=== PATIENT | female | born 1965 | race Caucasian/White ===

== ENCOUNTER 2019-12-03 08:47 | Outpatient (CLI) | payer OTHER, SELFPAY ==
--- NOTE | 2019-12-03 08:56 | MM_ITS ---
WS: [id number] BILATERAL SCREENING DIGITAL MAMMOGRAM WITH CAD HISTORY: SCREENING COMPARISON: 10/22/2018, 10/21/2017, Bilateral CC and MLO views submitted. Computer aided detection analyzed. Breast composition: There are scattered areas of fibroglandular density. No suspicious masses, microc alcifications or architectural distortion. Asymmetries and increased density posterior to the nipples . Similar pattern as compared to prior studies. Benign calcifications in each breast. MM/[id number] IMPRESSION: BI-RADS: 2-Benign FOLLOW UP: 1 Year Follow-up
== END 2019-12-03 08:48 | disposition home or self-care (01) ==
LOC: RADSHAW 08:53
PROVIDERS: PCP Family Medicine; Visit Provider Family Medicine
DX: Z12.31 Encounter for screening mammogram for malignant neoplasm of breast (principal)
CPT/HCPCS: 77067

== ENCOUNTER 2020-10-19 12:57 | Outpatient (CLI) | payer OTHER, SELFPAY ==
--- NOTE | 2020-10-19 15:22 | ONC FU_ITS ---
Dr. Martell follow up note Patient: Arely Lindsey Unit #: [id number]: 1965 Dicatated By: Marietta Martell M.D.Date of Visit:Oct 19, 2020 Onc Med Follow-up/Prog Note History of Present Illness: Ms. Arely Lindsey, is a 55-year-old female who underwent screening colonoscopy on December 04, 2017, which showed 30 mm polyp in the ascending colon and 5 mm polyp in the ascending colon biopsy confirmed adenomatous polyp with low-grade dysplasia in the ascending colon and cecum area, on December 24, 2017 she underwent laparoscopic right hemicolectomy, terminal ileum, cecum and ascending colon, were removed and examined and shows invasive well-differentiated colonic adenocarcinoma arising in the very large adenomatous polyp of the cecum. Tumor shows invasion into submucosa, 7.5 cm in size, lymphovascular invasion was seen. All margins negative including eccentric margin. 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 Neuroendocrine neoplasm located in the submucosa without muscularis propria invasion. Both small intestine and chronic lines of resection free of margin. 0 out of 20 lymph nodes shows metastatic disease., T1, N0 stage I colon cancer, As per patient no adjuvant treatment was offered rather observation, as per patient she underwent follow-up colonoscopy on December 10, [address] Dumont and it was unremarkable and next one is due in 2021. Patient has been following with Dr. Bianchi, medical oncologist in [place], now because of convenience she has transferred her care to [place]. Denies any specific complaints, no melena or hematochezia, no hemoptysis hematemesis, no abdominal pain, no jaundice, no weight loss, no jaundice, no facial flushing, no bronchial wheezing, no diarrhea. Medications: Acidophilus Super Probiotic Capsule Oral daily, Adult Aspirin EC Low Strength 1 Tablet (of 81 mg) Tablet, enteric coated Oral daily, D-1000 Extra Strength 1 Tablet (of 25 mcg ) Oral daily, hydroCHLOROthiazide 1 Tablet (of 12.5 mg) Oral daily, Levocetirizine Dihydrochloride 1 Tablet (of 5 mg) Oral daily, Levothyroxine Sodium 1 Tablet (of 25 mcg) Oral daily, Lutein 1 Tablet (of 20 mg) Oral daily, Mini Mcmechen-3 Burp-Less 1 Tablet (of 540 mg) Capsule Oral daily, Polyethylene Glycol Powder daily, Simvastatin 1 Tablet (of 20 mg) Oral daily, traMADol HCl 1 Tablet (of 50 mg) Oral four times a day Allergies: Azithromycin, Ciprofloxacin HCl, Codeine Sulfate, Cortisone Acetate, Erythromycin, Mobic, oxyCODONE HCl, Singulair, and Sulfa Antibiotics. Review of Systems: Review of Systems is not available for this patient. Vital Signs: Performed on Oct 19, 2020 14:58 Height - 62 in Weight - 231.4 lbs (HIGH) BSA - 2.03 sq.m BMI - 42.32 (HIGH) Temperature - 98.2 F (LOW) Pulse - 101 /min (HIGH) Respiration - 18 /min BP - 135/84 mm(hg) O2 Sat - 97 % Pain - 0 Fatigue - 0 Performance Status: 0 - Fully active, able to carry on all predisease activities without restrictions. (ECOG) Physical Examination: ENMT - No mouth sores, no thrush, no jaundice, Respiratory - Lungs are clear to auscultation, Cardiovascular - Regular rate and rhythm of heart, Abdomen - Soft, bowel sounds present, Extremities - No visible edema. Lab/Imaging: Most recent lab results are not available for this patient. Impression: Invasive well-differentiated colonic adenocarcinoma arising very large adenomatous polyp of the cecum, tumor shows invasive into submucosa, 7.5 cm size, lymphovascular invasion seen but clear surgical margins, 0 out of 20 lymph node positive unless her disease, per laparoscopic right hemicolectomy done on December 24, 2017, final pathology confirmed T1, N0, M0, stage I colon cancer There was incidental finding of 0.4 cm well-differentiated neuroendocrine neoplasm, carcinoid tumor of the appendiceal tip. Neuroendocrine neoplasm located in the submucosa without muscularis propria invasion. With clear surgical margins. No loss of expression of MMR proteins. Follow-up colonoscopy done on November shows no inflammatory changes, diverticulosis was moderate seen in sigmoid colon, ileocolonic anastomosis was healthy-appearing, widely patent. 4 mm polyp from descending colon was removed. Status post right hip operation in May 2018. Hypothyroidism, history of lower extremity DVT Plan: Discussed with patient regarding her disease status and the question concern regarding further follow-up, patient said it has been 6 months she has seen her medical oncologist in [place], so next lab work-up is pending so we will obtain her follow-up lab work-up which include CBC CMP and CEA today and review, if there is any abnormality we will call her early otherwise then she will return to clinic in 6 months with follow-up labs CBC CMP and CEA, patient was advised to avoid or minimize red meat intake and and consume vegetable on regular basis. Patient had follow-up mammogram done last year and next one is due in November 2020. And last colonoscopy was done in 2018 and next one is due in 2021. Signed By: Marietta Martell M.D. <<Signature on File>>
[2020-10-19 15:25] LABS: Basophils % 0.9 %; Eosinophils # 0.1 10^3/uL (0.0-0.8); Eosinophils % 1.9 %; Hematocrit 40.5 % (37.0-47.0); Hemoglobin 13.7 g/dL (11.5-15.3); Lymphocytes # 1.3 10^3/uL (0.8-4.8); Lymphocytes % 27.9 %; Mean Corpuscular HGB Conc 33.8 g/dL (30.0-36.0); Mean Corpuscular Hemoglobin 29.7 pg (28.0-34.0); Mean Corpuscular Volume 87.7 fl (81-99); Mean Platelet Volume 9.7 fL (7.4-10.4); Monocytes # 0.4 10^3/uL (0.2-0.9); Neutrophils # 2.79 10^3/uL (1.8-7.7); Neutrophils % 59.9 %; Nucleated Red Blood Cells % 0 %; Platelet Count 192 10^3/cmm (130-400); Red Blood Count 4.62 10^6/uL (4.1-5.3); Red Cell Distribution Width 14.1 % (12.1-15.1); White Blood Count 4.7 10^3/uL (4.0-10.0)
[2020-10-19 16:12] LABS: Alanine Aminotransferase 33 U/L (0-33); Albumin Level 4.4 g/dL (3.5-5.2); Alkaline Phosphatase 88 IU/L (35-105); Anion Gap 16.6 (5-19); Aspartate Amino Transferase 29 U/L (0-32); Blood Urea Nitrogen 9 mg/dL (6-20); Calcium 9.6 mg/dL (8.5-10.5); Carbon Dioxide 26 mmol/L (22-29); Chloride 100 mmol/L (98-107); Globulin 2.8 g/dL (1.3-4.6); Glomerular Filtration Rate 86.2 mL/min (90-130); Glucose 78 mg/dL (65-115); Osmolality Calculated 286 mOsm/kg (285-295); Potassium 3.6 mmol/L (3.5-5.1); Sodium 139 mmol/L (136-145); Total Protein 7.2 g/dL (6.6-8.7)
[2020-10-19 18:02] LABS: Carcinoembryonic Antigen 2.1 ng/mL (0.0-4.7)
== END 2020-10-19 12:58 | disposition home or self-care (01) ==
LOC: ONCMED 13:05
PROVIDERS: PCP Family Medicine; Visit Provider Internal Medicine Hematology & Oncology
DX: C18.0 Malignant neoplasm of cecum (principal); E03.9 Hypothyroidism, unspecified; Z86.718 Personal history of other venous thrombosis and embolism; Z79.82 Long term (current) use of aspirin; Z79.899 Other long term (current) drug therapy; Z79.890 Hormone replacement therapy
CPT/HCPCS: 36415; 80053; 82378; 85025; 99205

== ENCOUNTER 2021-01-25 13:02 | Outpatient (CLI) | payer OTHER, SELFPAY ==
--- NOTE | 2021-01-25 13:09 | MM_ITS ---
WS: [id number] BILATERAL DIGITAL SCREENING MAMMOGRAPHY WITH CAD CLINICAL INFORMATION: SCREENING HISTORY: Screening mammogram. No current complaints. COMPARISON: December 03, 2019 TECHNIQUE: Bilateral CC and MLO views. FINDINGS: Scattered fibroglandular densities bilaterally. Stable punctate calcifications. No suspicious focal m ass, asymmetry, calcifications, or architectural distortion. No evidence of malignancy. MM/[id number] IMPRESSION: BI-RADS: 2-Benign FOLLOW UP: 1 Year Follow-up Recommend return to annual screening mammography.
== END 2021-01-25 13:03 | disposition home or self-care (01) ==
LOC: RADSHAW 13:04
PROVIDERS: PCP Family Medicine; Visit Provider Family Medicine
DX: Z12.31 Encounter for screening mammogram for malignant neoplasm of breast (principal)
CPT/HCPCS: 77067

== ENCOUNTER 2022-01-31 12:23 | Outpatient (CLI) | payer OTHER, SELFPAY ==
--- NOTE | 2022-01-31 13:03 | MM_ITS ---
WS: [id number] VIEWS: MLO and CC views both breasts. 3D digital tomosynthesis is also included in this exam. Comparison made with prior exam of 09/09/2014, 10/11/2016, 10/22/2018, 12/03/2019. 01/25/2021.. Findings: There was no sign of mass, architectural distortion or suspicious calcification in either breast. Sta ble appearing nodular densities in both breasts. Scattered fibroglandular densities MM/[place] [id number] Impression: BI-RADS: 2-Benign FOLLOW-UP: 1 Year Follow-up This mammogram was also analyzed by the Computer Aided Detection System R2 Imag e Microfilm Clerk.
== END 2022-01-31 12:24 | disposition home or self-care (01) ==
LOC: RAD 12:23
PROVIDERS: PCP Family Medicine; Visit Provider Family Medicine
DX: Z12.31 Encounter for screening mammogram for malignant neoplasm of breast (principal)
CPT/HCPCS: 77063; 77067

== ENCOUNTER 2022-10-28 13:32 | Emergency (ER) | payer OTHER, SELFPAY ==
--- NOTE | 2022-10-28 13:35 | XRR_ITS ---
PROCEDURE INFORMATION: Exam: XR Left Foot Exam date and time: 10/28/2022 2:33 PM Age: 57 years old Clinical indication: Injury or trauma; Other: Object fell on L foot; Swelling (edema); Left TECHNIQUE: Imaging protocol: Radiologic exam of the left foot. Views: 3 or more views. COMPARISON: No relevant prior studies available. FINDINGS: Bones/joints: Mild hallux valgus deformity. No acute fracture identified. Mild degenerative spurring about the dorsal midfoot. Mild plantar calcaneal spurring. Soft tissues: Prominent soft tissue swelling about the forefoot. XR/XR foot LT min 3V* [id number] IMPRESSION: Prominent nonspecific soft tissue swelling about the forefoot. No underlying osseous fracture identified.
[2022-10-28 14:00] VITALS: BP 137/82; PULSE 88; TEMP 36.8; O2SAT 100; BMI 41.1
--- NOTE | 2022-10-28 14:03 | W.ED.LOWEXIN ---
HPI - Extremity Injury (Lower) General: Chief Complaint: Extremity Injury, Lower Stated Complaint: Lt foot inj Time Seen by Provider: 10/28/22 13:43 Source: patient Mode of arrival: ambulatory Limitations: no limitations History of Present Illness: 57-year-old female states that she dropped a table onto her left foot roughly an hour and a half ago she has pain over the midfoot she rates the pain a 1 out of 10 while she is resting pain is worse with movement she been able to ambulate but states it is painful denies any other injuries Review of Systems Const: Denies: fever(s) or chills Eyes: Denies: eye discomfort ENMT: Denies: throat pain or dental pain Card: Denies: chest pain Resp: Denies: dyspnea GI: Denies: abdominal pain, nausea, vomiting or diarrhea Musc: Reports: extremity pain; Denies: neck pain or back pain Neuro: Denies: headache(s) PFSH ED PFSH: Medical History Allergy to antibiotic Hordeolum externum left upper eyelid Hyperlipemia Hypothyroid Lower respiratory infection Social History Smoking and tobacco status: never smoked Second hand smoke exposure: No Smoking risk assessment/counseling performed?: No Reason smoking risk assessment not done: not indicated Alcohol intake: never Desire information about alcohol rehabilitation?: No Counseling given: No Substance/Drug Use: never Desire information about substance/drug rehabilitation?: No Counseling given: No Physical Exam Const: COMMON NORMALS: no acute distress and patient oriented x3 HENMT: COMMON NORMALS: normocephalic and atraumatic HEAD & SCALP: normocephalic and atraumatic Eye: COMMON NORMALS: conjunctivae normal CONJUNCTIVA: Yes conjunctivae normal Neck/C-Spine: COMMON NORMALS: supple Chest: COMMONS NORMALS: normal inspection of the chest Resp: COMMON NORMALS: normal respiratory effort Cardio: COMMON NORMALS: regular rate and regular rhythm RATE: regular rate RHYTHM: regular rhythm GI: COMMON NORMALS: Normal to inspection, nondistended, normoactive bowel sounds present Extremity: NARRATIVE EXTREMITY EXAM: Contusion noted to the left foot along with tenderness Neuro: COMMON NORMALS: patient oriented x3 Psych: COMMON NORMALS: mental status grossly normal Skin: COMMON NORMALS: no rashes or lesions noted GENERAL SKIN EXAM: no rashes or lesions noted Course Vital Signs: Vital signs: Vital Signs Temperature 98.3 F 10/28/22 14:00 Pulse Rate 88 10/28/22 14:00 Blood Pressure 137/82 10/28/22 14:00 Pulse Oximetry 100 10/28/22 14:00 Oxygen Delivery Me thod Room Air 10/28/22 14:00 MDM - Extremity Injury (Lower) Medical Decision Making Patient presents with contusion to her foot x-ray shows no fracture she is stable for discharge she is to Nabil wrap we will prescribe her Naprosyn she is to follow-up with PCP and return if worsening. Lab Data Radiology Impressions Foot X-Ray 10/28/22 13:35 IMPRESSION: Prominent nonspecific soft tissue swelling about the forefoot. No underlying osseous fracture identified. All radiology interpretation(s) finalized by discharge Discharge Plan Discharge Patient Disposition: Home Clinical Impression: Contusion of foot Qualifiers: Encounter type: initial encounter Laterality: left Qualified Code(s): S90.32XA - Contusion of left foot, initial encounter Condition: Stable Prescriptions: New Naprosyn 500 mg tablet 500 mg PO BID PRN (Reason: pain) Qty: 20 0RF No Action tramadol 50 mg tablet 50 mg PO ONCE levothyroxine 25 mcg tablet 25 mcg PO DAILY cephalexin 500 mg capsule 500 mg PO TID neomycin-polymyxin B-dexameth [Maxitrol] 3.5mg/mL-10,000 unit/mL-0.1 % drops,suspension See Rx Instructions ophthalmic (eye) Q8H 7 Days Qty: 5 0RF Rx Instructions: ophthalmic (eye) every 8 hours; 3 drops to the affected ear for 7 days. simvastatin 10 mg tablet 10 mg PO .at bedtime Qty: 30 2RF hydrochlorothiazide 12.5 mg tablet 12.5 mg PO DAILY Qty: 30 0RF Discharge Orders: Discharge ED (Routine); Ordered 10/28/22 Ordered By: Veronica Stanley Referrals: Rafael Jolly [Primary Care Provider] - 1-3 days Discharge Diet: Advance as tolerated Discharge Activity: Resume usual activity Patient Instructions: Foot Contusion (ED) Coding Level of Care Code ED Physical Therapist Clinic Director for Hetal Chang
== END 2022-10-28 15:02 | disposition home or self-care (01) ==
PROVIDERS: Emergency Provider Emergency Medicine; PCP Family Medicine
DX: S90.32XA Contusion of left foot, initial encounter (principal); E78.5 Hyperlipidemia, unspecified; W20.8XXA Other cause of strike by thrown, projected or falling object, initial encounter
CPT/HCPCS: 73630; 99283

== ENCOUNTER 2022-11-05 11:34 | Outpatient (CLI) | payer OTHER, SELFPAY ==
--- NOTE | 2022-11-05 11:51 | XRR_ITS ---
PROCEDURE INFORMATION: Exam: XR Left Foot Exam date and time: 11/05/2022 12:00 PM Age: 57 years old Clinical indication: Injury or trauma; Other: Dropped table on foot; Blunt trauma; Left; Injury details: Lt foot pain, PT droppd table on it 1 week ago; Patient HX: HX of colon cancer; Additional info: Injury of left foot TECHNIQUE: Imaging protocol: Radiologic exam of the left foot. Views: 3 or more views. COMPARISON: CR (LOW EXM, ) 10/28/2022 2:33 PM FINDINGS: Bones/joints: Alignment is normal. No acute fracture. There is a plantar calcaneal enthesophyte of uncertain significance. There is a prominent (5 x 4 mm) smoothly corticated dorsal osseous excrescence from the navicular visible on the lateral view. Possible osteophyte or osteochondroma. Soft tissues: Marked dorsal soft tissue edema in the distal midfoot. XR/XR foot LT min 3V* [id number] IMPRESSION: 1. No acute fracture. 2. Marked dorsal soft tissue edema in the distal midfoot and forefoot similar to 10/28/2022. 3. Incidental findings above.
--- NOTE | 2022-11-05 11:52 | USCV_ITS ---
Arely Lindsey Age: 57 Gender: F : 1965 Exam Date: 11/05/2022 12:24 Ordering Phys: Aysha Gregory Technologist: [place] [facility] [place]: lt leg swelling PROCEDURES: Venous duplex imaging was performed in only the left lower extremity. The following venous structures were evaluated: common femoral vein, profunda vein, proximal portion of the greater saphenous vein, superficial femoral vein, and the popliteal vein. In addition, the posterior tibial and peroneal trunk were evaluated. FINDINGS: Normal 2-D Doppler and augmentation and compressibility throughout the lower extremity venous structures. Additional imaging through the proximal calf veins also reveals no thrombus. Limited evaluation of the greater saphenous vein is patent with no thrombus. CONCLUSIONS No DVT left lower extremity. Dr. Lesley Low DO (Electronically Signed) Final Date: 05 November 2022 15:13 S
== END 2022-11-05 11:35 | disposition home or self-care (01) ==
PROVIDERS: PCP Family Medicine; Visit Provider Nurse Practitioner Family
DX: S99.922A Unspecified injury of left foot, initial encounter (principal); M79.89 Other specified soft tissue disorders; M79.672 Pain in left foot; W20.8XXA Other cause of strike by thrown, projected or falling object, initial encounter; Y92.019 Unspecified place in single-family (private) house as the place of occurrence of the external cause; Z85.038 Personal history of other malignant neoplasm of large intestine
CPT/HCPCS: 73630; 93971

== ENCOUNTER 2023-02-13 15:23 | Outpatient (CLI) | payer OTHER, SELFPAY ==
--- NOTE | 2023-02-13 15:30 | MM_ITS ---
WS: [id number] BILATERAL 3D TOMOSYNTHESIS DIGITAL SCREENING MAMMOGRAPHY WITH CAD CLINICAL INFORMATION: SCREENING HISTORY: Screening mammogram. No current complaints. COMPARISON: 2021 TECHNIQUE: Bilateral CC and MLO views. FINDINGS: Scattered fibroglandular densities bilaterally. No suspicious focal mass, asymmetry, calcifications, or architectural distortion. No evidence of malignancy. A few incidental punctate calcifications. IMPRESSION: MM/[place] [id number] BI-RADS: 2-Benign FOLLOW UP: 1 Year Follow-up Recommend return to annual screening mammography.
== END 2023-02-13 15:24 | disposition home or self-care (01) ==
LOC: MOBLMAM 15:27
PROVIDERS: PCP Family Medicine; Visit Provider Family Medicine
DX: Z12.31 Encounter for screening mammogram for malignant neoplasm of breast (principal)
CPT/HCPCS: 77063; 77067

== ENCOUNTER → 2024-01-21 16:11 | Outpatient (BNVA) | payer OTHER, SELFPAY | PROVIDERS: PCP Family Medicine; Visit Provider Nurse Practitioner Family | DX: M10.9 Gout, unspecified (principal) | CPT/HCPCS: 84550 ==

== ENCOUNTER 2024-03-18 11:38 | Outpatient (CLI) | payer OTHER, SELFPAY ==
--- NOTE | 2024-03-18 11:40 | MM_ITS ---
WS: [id number] Bilateral screening 3D tomosynthesis digital mammogram, 03/18/2024 11:45 AM Clinical Data: SCREENING Comparison: 02/13/2023, 01/31/2022, 01/25/2021, 12/03/2019, 10/22/2018, 10/21/2017, 10/11/2016, 09/09/2014, 01/17/2012, 05/29/2010, 11/08/2008, 08/06/2007. Findings: No spiculated masses or clustered calcifications are seen. There are no secondary signs of carcinoma. MM/MM scr BI tomosynthesis [id number] Impression: Negative bilateral mammogram unchanged. Recommend annual screening mammograms. BIRADS: 1 - Negative. FOLLOW UP: 1 Year Follow-up DENSITY: There are scattered areas of fibroglandular density. The CAD engineering drawings checker was used
== END 2024-03-18 11:39 | disposition home or self-care (01) ==
LOC: MOBLMAM 11:40
PROVIDERS: PCP Family Medicine; Visit Provider Family Medicine
DX: Z12.31 Encounter for screening mammogram for malignant neoplasm of breast (principal); R92.323 Mammographic fibroglandular density, bilateral breasts
CPT/HCPCS: 77063; 77067

== ENCOUNTER → 2024-07-08 16:09 | Outpatient (BNVA) | payer OTHER, SELFPAY | PROVIDERS: PCP Family Medicine; Visit Provider Nurse Practitioner Family | DX: M10.9 Gout, unspecified (principal); R10.9 Unspecified abdominal pain; E83.42 Hypomagnesemia | CPT/HCPCS: 80053; 81003; 83735; 84443; 84550; 85025 ==